=== PATIENT | female | born 1940 | race Asian ===

== ENCOUNTER 2021-10-22 10:58 | Emergency (ER) | payer OTHER ==
[~2021-10-22] VITALS: Ht 154.9 cm; Wt 59.0 kg
[~2021-10-22 10:58] MED LIST: ASPI-1155 PO; ATOR40TA68 PO; GLUC-141 PO; LISI-217 PO; METO25TA6 PO; MULT-1117 PO; [UNRECOGNIZED DRUG - CODE] PO
[2021-10-22 11:20] VITALS: BP_SYST 188
[2021-10-22] MEDS ORDERED: FLUORESCEIN SODIUM 1 MG OPHTHALMIC STRIP OP ONE (11:45)
[2021-10-22] MEDS ORDERED: TETRACAINE HCL/PF 0.5% OPHTHALMIC DROPS 4 ML OP ONE (11:45)
--- NOTE | 2021-10-22 12:15 | NUR ---
Patient to ER bed 8 for evaluation. Side rails up. Report given to Nicolas COLLINS.
--- NOTE | 2021-10-22 12:30 | NUR ---
ER at bedside examining patient.
[2021-10-22] MEDS ORDERED: valACYclovir HCL 500 MG TABLET PO ONE (13:15)
[2021-10-22] MEDS ORDERED: VALA10002 PO ×3 (13:17→13:50)
--- NOTE | 2021-10-22 13:22 | NUR ---
Called pharmacy- stated that they would send down the medication (Valtrex)
--- NOTE | 2021-10-22 13:43 | NUR ---
Report to Shruthi COLLINS.
[2021-10-22 14:04] VITALS: BP_SYST 188
--- NOTE | 2021-10-22 14:06 | NUR ---
Patient given written and verbal discharge instructions and verbalizes understanding. ER MD discussed with patient the results and treatment provided. Patient in stable condition. ID arm band removed.Rx of Valtrex given. Opportunity for questions provided and answered. Medication side effect fact sheet provided.
== END 2021-10-22 14:06 | disposition home or self-care (01) ==
LOC: SED 10:58
DX: B02.39 Other herpes zoster eye disease (principal); R21 Rash and other nonspecific skin eruption; I10 Essential (primary) hypertension; Z79.899 Other long term (current) drug therapy
CPT/HCPCS: 99283

== ENCOUNTER 2022-11-06 10:48 | Emergency (ER) | payer OTHER ==
[~2022-11-06] VITALS: Ht 154.9 cm; Wt 54.4 kg
[~2022-11-06 10:48] MED LIST changes: +VALA10002 PO
[2022-11-06 10:50] VITALS: BP_SYST 163; PULSE 48; RESP 17; TEMP 97.2; O2SAT 98
[2022-11-06] MEDS ORDERED: hydrALAZINE HCL 20 MG/ML VIAL IVP ONE (13:00)
[2022-11-06 15:21] VITALS: BP_SYST 144; PULSE 45; RESP 18; TEMP 98.7; O2SAT 96
== END 2022-11-06 14:51 | disposition home or self-care (01) ==
LOC: SED 10:48
DX: R00.1 Bradycardia, unspecified (principal); I16.9 Hypertensive crisis, unspecified; I10 Essential (primary) hypertension; Z79.899 Other long term (current) drug therapy
CPT/HCPCS: 99283; 93005; J0360